=== PATIENT | male | born 1990 | race Caucasian/White ===

== ENCOUNTER 2019-01-17 23:07 | Emergency (ER) | payer OTHER ==
[~2019-01-17] VITALS: Ht 180.3 cm; Wt 70.3 kg
[2019-01-17 23:10] VITALS: BP 127/77
--- NOTE | 2019-01-18 01:11 | NUR ---
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 DENIES PMH NKA DENIES N/V/D; SKIN IS PINK/WARM/DRY; AAOX4 WITH EVEN AND STEADY GAIT; LUNGS CLEAR BL; HR EVEN AND REGULAR; PT DENIES ANY FEVER, CP, SOB, AT THIS TIME; PATIENT STATES PAIN OF 0/10 AT THIS TIME; VSS; PATIENT POSITIONED FOR COMFORT; HOB ELEVATED; BEDRAILS UP X2; BED DOWN. ER MD MADE AWARE OF PT STATUS.
[2019-01-18] MEDS ORDERED: AMOXICILLIN 500 MG CAP PO ONE (02:05)
[2019-01-18] MEDS ORDERED: KETOROLAC 60 MG/2 ML VIAL IM ONE (02:05)
--- NOTE | 2019-01-18 02:58 | NUR ---
Patient discharged with v/s stable. Written and verbal after care instructions given and explained. Patient alert, oriented and verbalized understanding of instructions. Ambulatory with steady gait. All questions addressed prior to discharge. ID band removed. Patient advised to follow up with PMD. Rx of PROMETHAZINE, AMOXICLLIN, MOTRIN given. Patient educated on indication of medication including possible reaction and side effects. Opportunity to ask questions provided and answered.
[2019-01-18 02:59] VITALS: BP 118/59
== END 2019-01-18 02:59 | disposition home or self-care (01) ==
LOC: MED 23:07
DX: H66.93 Otitis media, unspecified, bilateral (principal); R05 Cough; J02.9 Acute pharyngitis, unspecified; R09.89 Other specified symptoms and signs involving the circulatory and respiratory systems
CPT/HCPCS: 96372; 99283; J1885

== ENCOUNTER 2019-05-12 16:24 | Emergency (ER) | payer OTHER ==
[~2019-05-12] VITALS: Ht 180.3 cm; Wt 68.5 kg
[2019-05-12 16:29] VITALS: BP 131/99
--- NOTE | 2019-05-12 16:35 | NUR ---
PT AMB TO BED 1 WITH STEADY GAIT
--- NOTE | 2019-05-12 17:00 | NUR ---
PT BIB [facility] WITH C/O MULTIPLE LACERATIONS TO R HAND AT APPROX 1530. PT WAS GOING TO CHANGE THE FAN BLADE IN AC AND THEN THE MACHINE TURNED ON. BLEEDING CONTROLLED. PT USED HOME JASON WRAP. TOOK IBUPROFEN 1600 MG, NAPROXEN 1000 MG, TYELENOL 1000, NO RELIEF. PAIN 10/10. LIBRARY ATTENDANT TA THE FINGER INTACT. WITHDRAWS TO PAIN. ER MD TO SEE THE PT. PMH- DENIES
[2019-05-12] MEDS ORDERED: ACETAMINOPHEN 325 MG TAB PO ONE (17:25)
[2019-05-12] MEDS ORDERED: HYDROcodone/APAP 5/325 MG 1 TAB TAB PO ONE (18:10)
--- NOTE | 2019-05-12 18:18 | NUR ---
PLACED ELIZA TAPE & SARA ON PATIENT'S RIGHT PINKY AND RING FINGER WITH METAL SLING.
--- NOTE | 2019-05-12 18:19 | NUR ---
PT MEDICATED WITH [employer] ORDERED. PT STATES FAMILY MEMBER IS GOING TO DRIVE TO HOME. EXPLAINED HIM THAT [employer] CAN IMPAIR THE DRIVING ABILITY. VERBALISED UNDERSTANDING.
[2019-05-12 18:22] VITALS: BP 134/89
--- NOTE | 2019-05-12 18:22 | NUR ---
Patient discharged with v/s stable. Written and verbal after care instructions given and explained. Patient alert, oriented and verbalized understanding of instructions. Ambulatory with steady gait. All questions addressed prior to discharge. ID band removed. Patient advised to follow up with PMD. Rx of BACITRACIN, IBUPROFEN given. Patient educated on indication of medication including possible reaction and side effects. Opportunity to ask questions provided and answered.
== END 2019-05-12 18:22 | disposition home or self-care (01) ==
LOC: MED 16:24
DX: S61.411A Laceration without foreign body of right hand, initial encounter (principal); F17.210 Nicotine dependence, cigarettes, uncomplicated; X58.XXXA Exposure to other specified factors, initial encounter; Y93.89 Activity, other specified; Y92.89 Other specified places as the place of occurrence of the external cause; Y99.8 Other external cause status
CPT/HCPCS: 12001; 99283

== ENCOUNTER 2021-02-08 10:28 | Emergency (ER) | payer OTHER ==
[~2021-02-08] VITALS: Ht 177.8 cm; Wt 64.4 kg
[2021-02-08 10:33] VITALS: BP 140/90
[2021-02-08] MEDS ORDERED: METOCLOPRAMIDE 10 MG/2 ML INJ VIAL IVP ONE (11:00)
[2021-02-08] MEDS ORDERED: KETOROLAC 15 MG/ML VIAL IVP ONE (11:00)
[2021-02-08] MEDS ORDERED: NACL 0.9% 1,000 ML IV ONE (11:00)
[2021-02-08 11:33] LABS: BASOPHILS % (AUTO) 0.5 % (0.0-2.0); EOSINOPHILS # (AUTO) 0.1 K/uL (0-0.4); EOSINOPHILS % (AUTO) 1.1 % (0.0-4.0); HEMATOCRIT 42.2 % (36-52); HEMOGLOBIN 14.4 g/dL (12.0-18.0); LYMPHOCYTES # (AUTO) 1.4 K/uL (2.0-11.5); LYMPHOCYTES % (AUTO) 23.9 % (20.5-51.1); MEAN CORPUSCULAR HEMOGLOBIN 34 pg (27-31); MEAN CORPUSCULAR HGB CONC 34 g/dL (33-37); MEAN CORPUSCULAR VOLUME 98.5 fL (80-94); MONOCYTES # (AUTO) 0.6 K/uL (0.8-1.0); MONOCYTES % (AUTO) 10.9 % (1.7-9.3); NEUTROPHILS # (AUTO) 3.6 K/uL (1.8-7.7); NEUTROPHILS % (AUTO) 63.6 % (42.2-75.2); PLATELET COUNT (AUTO) 159 K/uL (140-450); RED BLOOD CELL COUNT(AUTO) 4.29 MIL/uL (4.20-6.10); RED CELL DISTRIBUTION WIDTH 14.5 % (11.6-13.7); WHITE BLOOD COUNT (AUTO) 5.7 K/uL (4.8-10.8)
[2021-02-08 11:47] LABS: ANION GAP 10.8 (8-16); CARBON DIOXIDE 27.3 mmol/L (21-32); CREATININE 0.7 mg/dL (0.6-1.3); POTASSIUM 4.1 mmol/L (3.5-5.1)
[2021-02-08] MEDS ORDERED: HYDROcodone/APAP 5/325 MG 1 TAB TAB PO ONE (12:05)
[2021-02-08 14:23] VITALS: BP 125/85
== END 2021-02-08 14:23 | disposition home or self-care (01) ==
LOC: MED 10:28
DX: R51.9 Headache, unspecified (principal); M25.561 Pain in right knee; V89.2XXA Person injured in unspecified motor-vehicle accident, traffic, initial encounter; Y93.89 Activity, other specified; Y92.89 Other specified places as the place of occurrence of the external cause; Y99.8 Other external cause status
CPT/HCPCS: 36415; 70450; 73562; 80048; 85025; 96361; 96374; 96375; 99285; J1885; J2765; J7030

== ENCOUNTER 2023-09-03 07:33 | Emergency (ER) | payer OTHER ==
[~2023-09-03] VITALS: Ht 180.3 cm; Wt 68.5 kg
[2023-09-03 07:42] VITALS: BP 144/90; PULSE 79; RESP 18; TEMP 97.9; O2SAT 99
[2023-09-03] MEDS ORDERED: ONDANSETRON 4 MG/2 ML VIAL IVP ONE (08:00)
[2023-09-03] MEDS ORDERED: NACL 0.9% 1,000 ML IV SCH (08:00)
[2023-09-03 08:20] VITALS: O2SAT 99
[2023-09-03 09:01] LABS: BASOPHILS % (AUTO) 0.6 % (0.0-2.0); EOSINOPHILS # (AUTO) 0.1 K/uL (0-0.4); EOSINOPHILS % (AUTO) 2.7 % (0.0-4.0); HEMATOCRIT 44.6 % (36-52); HEMOGLOBIN 15.1 g/dL (12.0-18.0); LYMPHOCYTES # (AUTO) 1.3 K/uL (2.0-11.5); MEAN CORPUSCULAR HEMOGLOBIN 33 pg (27-31); MEAN CORPUSCULAR HGB CONC 34 g/dL (33-37); MEAN CORPUSCULAR VOLUME 98.6 fL (80-94); MONOCYTES # (AUTO) 0.7 K/uL (0.8-1.0); MONOCYTES % (AUTO) 14.5 % (1.7-9.3); NEUTROPHILS # (AUTO) 2.3 K/uL (1.8-7.7); NEUTROPHILS % (AUTO) 52.2 % (42.2-75.2); PLATELET COUNT (AUTO) 181 K/uL (140-450); RED BLOOD CELL COUNT(AUTO) 4.52 MIL/uL (4.20-6.10); RED CELL DISTRIBUTION WIDTH 14.6 % (11.6-13.7); WHITE BLOOD COUNT (AUTO) 4.5 K/uL (4.8-10.8)
[2023-09-03 09:13] LABS: ALBUMIN 4.3 g/dL (3.4-5.0); ANION GAP 16.6 (8-16); CALCIUM 8.5 mg/dL (8.5-10.1); CARBON DIOXIDE 26.6 mmol/L (21-32); CREATININE 0.8 mg/dL (0.6-1.3); POTASSIUM 3.2 mmol/L (3.5-5.1); TOTAL BILIRUBIN 0.7 mg/dL (0.0-1.0); TOTAL PROTEIN, SERUM 8.3 g/dL (6.4-8.2)
[2023-09-03 09:24] LABS: APPEARANCE,URINE CLEAR (CLEAR); BILIRUBIN,URINE NEGATIVE (NEGATIVE); BLOOD, URINE NEGATIVE (NEGATIVE); COLOR,URINE YELLOW (YELLOW); LEUKOCYTE ESTERASE ,URINE NEGATIVE (NEGATIVE); NITRITE, URINE NEGATIVE (NEGATIVE); PROTEIN,URINE NEGATIVE (NEGATIVE); UGLUCOSE NEGATIVE (NEGATIVE)
[2023-09-03] MEDS ORDERED: KETOROLAC 30 MG/ML VIAL IVP ONE (09:45)
[2023-09-03] MEDS ORDERED: FAMOTIDINE 20 MG/2 ML VIAL IVP ONE (09:45)
[2023-09-03] MEDS ORDERED: POTASSIUM CHLORIDE 20% 40 MEQ/15 ML UDC PO ONE (09:45)
[2023-09-03] MEDS ORDERED: MAGNESIUM OXIDE 400 MG TAB PO ONE (09:45)
[2023-09-03 10:20] VITALS: BP 183/85; PULSE 75; RESP 18; TEMP 98.6; O2SAT 99
[2023-09-03] MEDS ORDERED: NAPR-1704 PO (11:15)
[2023-09-03] MEDS ORDERED: ONDA-188 PO (11:15)
== END 2023-09-03 11:27 | disposition home or self-care (01) ==
LOC: MED 07:33
DX: R51.9 Headache, unspecified (principal); R11.2 Nausea with vomiting, unspecified; E86.0 Dehydration; F10.10 Alcohol abuse, uncomplicated; R74.01 Elevation of levels of liver transaminase levels; D72.819 Decreased white blood cell count, unspecified; E87.6 Hypokalemia; F17.200 Nicotine dependence, unspecified, uncomplicated; Z71.6 Tobacco abuse counseling; Z79.899 Other long term (current) drug therapy; Z79.1 Long term (current) use of non-steroidal anti-inflammatories (NSAID); Y90.9 Presence of alcohol in blood, level not specified
CPT/HCPCS: 36415; 70450; 80053; 81003; 83690; 85025; 96361; 96374; 96375; 99285; J1885; J2405; J3490; J7030

== ENCOUNTER 2023-09-16 09:33 | Emergency (ER) | payer OTHER ==
[~2023-09-16] VITALS: Ht 180.3 cm; Wt 68.0 kg
[~2023-09-16 09:33] MED LIST: NAPR-1704 PO; ONDA-188 PO
[2023-09-16 09:39] VITALS: BP 164/89; PULSE 113; RESP 19; TEMP 97.7; O2SAT 98
[2023-09-16 10:06] VITALS: TEMP 97.7
[2023-09-16] MEDS ORDERED: NACL 0.9% 1,000 ML IV ONE (10:15)
[2023-09-16] MEDS ORDERED: LORazepam 2 MG/ML VIAL IVP ONE (10:15)
[2023-09-16 10:54] LABS: BASOPHILS % (AUTO) 0.3 % (0.0-2.0); EOSINOPHILS % (AUTO) 0.4 % (0.0-4.0); HEMATOCRIT 42.7 % (36-52); HEMOGLOBIN 14.4 g/dL (12.0-18.0); LYMPHOCYTES # (AUTO) 0.7 K/uL (2.0-11.5); LYMPHOCYTES % (AUTO) 11.1 % (20.5-51.1); MEAN CORPUSCULAR HEMOGLOBIN 34 pg (27-31); MEAN CORPUSCULAR HGB CONC 34 g/dL (33-37); MEAN CORPUSCULAR VOLUME 99.6 fL (80-94); MONOCYTES # (AUTO) 0.4 K/uL (0.8-1.0); MONOCYTES % (AUTO) 6.9 % (1.7-9.3); NEUTROPHILS # (AUTO) 5.3 K/uL (1.8-7.7); NEUTROPHILS % (AUTO) 81.3 % (42.2-75.2); PLATELET COUNT (AUTO) 238 K/uL (140-450); RED BLOOD CELL COUNT(AUTO) 4.28 MIL/uL (4.20-6.10); RED CELL DISTRIBUTION WIDTH 14.7 % (11.6-13.7); WHITE BLOOD COUNT (AUTO) 6.5 K/uL (4.8-10.8)
[2023-09-16 11:14] LABS: ALANINE AMINOTRANSFERASE 113 U/L (12-78); ALBUMIN 4.1 g/dL (3.4-5.0); ALKALINE PHOSPHATASE 51 U/L (50-136); ANION GAP 15.3 (8-16); ASPARTATE AMINOTRANSFERASE 110 U/L (15-37); CALCIUM 8.6 mg/dL (8.5-10.1); CARBON DIOXIDE 24.9 mmol/L (21-32); CHLORIDE 101 mmol/L (98-107); CREATININE 0.7 mg/dL (0.6-1.3); GFR ARICAN-AMERICAN 165 mL/min (>90); GFR NON ARICAN-AMERICAN 136 mL/min (>90); GLUCOSE 99 mg/dL (74-106); LIPASE 67 U/L (16-77); POTASSIUM 4.2 mmol/L (3.5-5.1); SODIUM SERUM 137 mmol/L (136-145); TOTAL BILIRUBIN 0.7 mg/dL (0.0-1.0); TOTAL PROTEIN, SERUM 7.8 g/dL (6.4-8.2); UREA NITROGEN, BLOOD 10 mg/dL (7-18)
[2023-09-16] MEDS ORDERED: ONDANSETRON 4 MG/2 ML VIAL IVP ONE (11:15)
[2023-09-16] MEDS ORDERED: KETOROLAC 30 MG/ML VIAL IVP ONE (11:15)
[2023-09-16] MEDS ORDERED: ONDA-188 PO (11:55)
[2023-09-16] MEDS ORDERED: LORA-476 PO (11:55)
[2023-09-16 12:55] VITALS: BP 120/66; PULSE 81; RESP 14; O2SAT 96
== END 2023-09-16 13:02 | disposition home or self-care (01) ==
LOC: MED 09:33
DX: F10.239 Alcohol dependence with withdrawal, unspecified (principal); F10.20 Alcohol dependence, uncomplicated; Y90.9 Presence of alcohol in blood, level not specified
CPT/HCPCS: 36415; 80053; 83690; 84484; 85025; 93005; 96361; 96374; 96375; 99285; J1885; J2060; J2405; J7030

== ENCOUNTER 2023-09-29 19:21 | Emergency (ER) | payer OTHER ==
[~2023-09-29] VITALS: Ht 180.3 cm; Wt 71.2 kg
[~2023-09-29 19:21] MED LIST changes: +LORA-476 PO
[2023-09-29 19:54] VITALS: BP 116/74; PULSE 93; RESP 14; TEMP 97.2; O2SAT 98
== END 2023-09-29 20:03 | disposition left against medical advice (07) ==
LOC: MED 19:21
DX: S01.85XA Open bite of other part of head, initial encounter (principal); W50.3XXA Accidental bite by another person, initial encounter; Y93.89 Activity, other specified; Y92.89 Other specified places as the place of occurrence of the external cause; Y99.8 Other external cause status
CPT/HCPCS: 99281

== ENCOUNTER 2024-04-28 16:03 | Emergency (ER) | payer OTHER ==
[~2024-04-28] VITALS: Ht 180.3 cm; Wt 73.3 kg
[2024-04-28 16:30] VITALS: BP 142/86; PULSE 83; RESP 20; TEMP 98.1; O2SAT 100
[2024-04-28 17:12] LABS: BASOPHILS # (AUTO) 0.1 K/uL (0.00-0.22); BASOPHILS % (AUTO) 1.1 % (0.0-2.0); EOSINOPHILS # (AUTO) 0.3 K/uL (0-0.4); EOSINOPHILS % (AUTO) 4.7 % (0.0-4.0); HEMATOCRIT 44.3 % (36-52); LYMPHOCYTES # (AUTO) 2.2 K/uL (2.0-11.5); LYMPHOCYTES % (AUTO) 32.9 % (20.5-51.1); MEAN CORPUSCULAR HEMOGLOBIN 33 pg (27-31); MEAN CORPUSCULAR HGB CONC 34 g/dL (33-37); MEAN CORPUSCULAR VOLUME 96.6 fL (80-94); MONOCYTES # (AUTO) 0.8 K/uL (0.8-1.0); MONOCYTES % (AUTO) 12.6 % (1.7-9.3); NEUTROPHILS # (AUTO) 3.2 K/uL (1.8-7.7); NEUTROPHILS % (AUTO) 48.7 % (42.2-75.2); PLATELET COUNT (AUTO) 211 K/uL (140-450); RED BLOOD CELL COUNT(AUTO) 4.59 MIL/uL (4.20-6.10); RED CELL DISTRIBUTION WIDTH 14.4 % (11.6-13.7); WHITE BLOOD COUNT (AUTO) 6.5 K/uL (4.8-10.8)
[2024-04-28] MEDS: ACETAMINOPHEN EXTRA STRENGTH 500 MG TAB PO ONE (17:14)
[2024-04-28] MEDS: KETOROLAC 30 MG/ML VIAL IM ONE (17:15)
[2024-04-28 17:24] LABS: ANION GAP 15.4 (8-16); CALCIUM 8.7 mg/dL (8.5-10.1); CARBON DIOXIDE 22.3 mmol/L (21-32); CREATININE 0.7 mg/dL (0.6-1.3); POTASSIUM 3.7 mmol/L (3.5-5.1)
[2024-04-28 17:27] LABS: INR 0.93 (0.8-1.2); PARTIAL THROMBOPLASTIN TIME 26.6 secs (22-35.6); PROTHROMBIN TIME 9.8 secs (10.8-13.4)
[2024-04-28 18:19] VITALS: BP 116/80; PULSE 65; RESP 12; TEMP 98; O2SAT 97
== END 2024-04-28 18:19 | disposition home or self-care (01) ==
LOC: MED 16:03
DX: R51.9 Headache, unspecified (principal); R07.9 Chest pain, unspecified; F10.20 Alcohol dependence, uncomplicated; I10 Essential (primary) hypertension; Z79.899 Other long term (current) drug therapy; Y90.9 Presence of alcohol in blood, level not specified
CPT/HCPCS: 36415; 71045; 80048; 83880; 84484; 85025; 85610; 85730; 93005; 96372; 99285; J1885